=== PATIENT | male | born 1975 | race African-American/Black ===

== ENCOUNTER 2016-10-09 08:32 | Inpatient (IN) | payer MEDICAID ==
[~2016-10-09] VITALS: Ht 172.7 cm; Wt 102.1 kg
[2016-10-09 08:38] VITALS: BP 144/79
--- NOTE | 2016-10-09 08:41 | NUR ---
Patient ambulated to bed 07.
--- NOTE | 2016-10-09 08:42 | NUR ---
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 PT STATES PT THROBBING PAIN TO LEFT LEG 8/10; SWELLING ;NON PITTING EDEMA ,PAIN REDIATES TO LEFT THIGH. PT DENIES N/V/D; SKIN IS PINK/WARM/DRY; AAOX4 ;UNSTEADY GAIT WALK W/ CANE; LUNGS CLEAR BL; HR EVEN AND REGULAR; PT DENIES ANY FEVER, CP, SOB, OR COUGH AT THIS TIME; PATIENT STATES PAIN OF 8/10 AT THIS TIME; PATIENT POSITIONED FOR COMFORT; HOB ELEVATED; BEDRAILS UP X2; BED DOWN. ER MD MADE AWARE OF PT STATUS.
--- NOTE | 2016-10-09 08:58 | NUR ---
Dr. Hurtado evaluating patient at bedside.
--- NOTE | 2016-10-09 09:20 | NUR ---
Patient was moved to bed 08.
--- NOTE | 2016-10-09 09:50 | NUR ---
PT REFUSES FOR IV MANAGEMENT; GAVE INFORMATION PT. DR VILA NOTIFIED.
[2016-10-09] MEDS: NACL 0.9% 1,000 ML IV SCH ×5 (09:53→22:24)
--- NOTE | 2016-10-09 09:53 | NUR ---
US at bedside.
--- NOTE | 2016-10-09 09:53 | NUR ---
rAnold zhu in [facility] - 10/09/16 at [address] AT BEDSIDE.
[2016-10-09] MEDS ORDERED: METHOCARBAMOL500 MG PO (09:59)
[2016-10-09] MEDS ORDERED: XARELTO20 MG PO (09:59)
--- NOTE | 2016-10-09 10:17 | NUR ---
XRAY at bedside.
[2016-10-09] MEDS ORDERED: LORazepam 2 MG/ML VIAL IM ONE (10:30)
[2016-10-09] MEDS ORDERED: LORazepam 2 MG/ML VIAL ONE (10:32)
--- NOTE | 2016-10-09 10:40 | NUR ---
EXPLAINED TO PT FOR IV THERAPY AND GAVE ATIVAN IM ; THEN GAVE IV THERAPY.
[2016-10-09] MEDS ORDERED: hePARIN / DEXT 5% PREMIX 250 ML IV ONE (12:10)
[2016-10-09] MEDS ORDERED: HEPARIN PER PHARMACY MC PRN ×3 (12:10→15:40)
[2016-10-09] MEDS ORDERED: ONDANSETRON 4 MG/2 ML VIAL IVP PRN (12:25)
[2016-10-09] MEDS ORDERED: MORPHINE SULFATE 2 MG/ML SYR IVP PRN (12:25)
--- NOTE | 2016-10-09 13:08 | NUR ---
GAVE REPORT TO YULIA MENDIOLA. YULIA MENDIOLA SAID WILL CALL BACK IN 5 MINS
--- NOTE | 2016-10-09 13:32 | NUR ---
Patient will be admitted to care of DR NG. Admited to [facility]. Will go to [id number]. Belongings list completed. Report to MAURY.
--- NOTE | 2016-10-09 13:45 | NUR ---
RECEIVED REPORT FROM DEAF/HARD OF HEARING SPECIALIST. PT ARRIVED ONTO UNIT VIA GURNEY. PT IS A/O X 4, AMBULATORY WITH CANE. NO S/S OF ACUTE CARDIAC/RESPIRATORY DISTRESS OR DISCOMFORT. RAC IV 20G INTACT AND PATENT. SAFETY MEASURES, FALL RISK PRECAUTION, AND CALL LIGHT WITHIN REACH AND IN PLACE. WILL INITIATE PLAN OF CARE AND CONTINUE TO MONITOR. FAMILY AT BEDSIDE.
[2016-10-09 14:00] VITALS: BP 132/84
[2016-10-09] MEDS ORDERED: METHOCARBAMOL 500 MG TAB PO PRN (14:35)
[2016-10-09] MEDS ORDERED: hePARIN / DEXT 5% PREMIX 250 ML IV SCH ×2 (15:40)
[2016-10-09 16:00] VITALS: BP 120/66
--- NOTE | 2016-10-09 16:30 | NUR ---
PT EATING DINNER GIVEN BY FATHER. PT HAS NO S/S OF ACUTE DISTRESS OR DISCOMFORT. CALL LIGHT WITHIN REACH. WILL CONTINUE TO MONITOR.
--- NOTE | 2016-10-09 19:01 | NUR ---
ENDORSED REPORT TO VERTICAL BORER RN. PT HAS NO S/S OF ACUTE DISTRESS OR DISCOMFORT. PT IN STABLE CONDITION.
--- NOTE | 2016-10-09 19:18 | NUR ---
RECEIVED REPORT FROM MAURY RN, AT BEDSIDE. INITIAL ASSESSMENT AND BODY CHECK DONE. PATIENT AAO X 4, ABLE TO FOLLOW COMMAND AND MAKE KNOWN, HAS LT SIDE WEAKNESS AND AMBULATORY WITH CANE. PATIENT CURRENTLY LYING DOWN ON THE BED AND WATCHING TV. NO S/S OF DISTRESS OR SOB NOTED. SKIN WARM/DRY TO TOUCH WITH NORMAL COLOR AND INTACT. DENIED OF ANY PAIN/DISCOMFORT AT THIS TIME. DISCUSSED PLAN OF CARE, PAIN MANAGEMENT AND MEDICATION REGIMEN WITH PATIENT AND PATIENT VERBALIZED UNDERSTANDING. PLACED PATIENT ON SAFETY/FALL PRECAUTIONS AND WILL CONTINUE TO MONITOR. CALL LIGHT LEFT WITHIN REACH.
--- NOTE | 2016-10-09 19:25 | NUR ---
PATIENT REFUSED BLOOD DRAW FOR PTT LEVEL AND STARTED TO BECOME AGITATE. OFFERED 3 TIMES, EXPLAINED RISKS/BENEFITS AND PATIENT VERBALIZED UNDERSTANDING. PATIENT STATED " YOU COME BACK AGAIN AT 10 PM.
[2016-10-09 20:00] VITALS: BP 109/65
--- NOTE | 2016-10-09 20:00 | NUR ---
UNABLE TO ADMINISTER IVF NS AT 100 ML/HR DUE TO PATIENT ONLY HAVE ONE IV ACCESS WHICH IS USING FOR HEPARIN DRIP. PATIENT ALSO REFUSED TO INSERT ANOTHER IV LINE. WILL ENCOURAGE THE FLUID INTAKE TOLERATE INSTEAD.
--- NOTE | 2016-10-09 20:39 | NUR ---
ROUNDS MADE, SEEN PATIENT RESTED QUIETLY IN BED. NO CHANGE IN CONDITION NOTED. WILL CONTINUE TO MONITOR.
[2016-10-09] MEDS: HYDROcodone/APAP 7.5/325 MG 1 TAB PO PRN (21:40)
--- NOTE | 2016-10-09 22:32 | NUR ---
PATIENT STILL REFUSING BLOOD DRAW FOR PTT LEVEL. EXPLAINED RISKS/BENEFITS. DR. NG MADE AWARE AND STATED TO TRY AGAIN IN THE MORNING.
[2016-10-10] VITALS: BP 121/76
--- NOTE | 2016-10-10 00:52 | NUR ---
PATIENT IS CLINICALLY STABLE AND NO S/S OF DISTRESS NOTED. WILL CONTINUE TO MONITOR.
[2016-10-10 04:00] VITALS: BP 119/64
--- NOTE | 2016-10-10 04:19 | NUR ---
PATIENT RESTED QUIETLY IN BED, EASILY AROUSED WITH STABLE CONDITION. NO ANY COMPLAINT MADE. WILL CONTINUE TO MONITOR.
[2016-10-10] MEDS: LORazepam 1 MG TAB PO PRN (05:24)
--- NOTE | 2016-10-10 05:27 | NUR ---
MEDICATED PATIENT WITH PO ATIVAN FOR ANXIETY BEFORE DRAWING THE AM LAB PER FAMILY REQUESTED. FAMILY WILL COME TO HELP TO COMFORT THE PATIENT AT AROUND 0600 AM.
--- NOTE | 2016-10-10 06:10 | NUR ---
FAMILY MEMBERS ARE HERE AT THE BEDSIDE. CALLED RAY TO COME TO DRAW THE BLOOD. PATIENT COOPERATED AND TOLERATED WELL WITH BEHAVIOR UNDER CONTROL.
--- NOTE | 2016-10-10 07:30 | NUR ---
ENDORSED PLAN OF CARE TO YULIA AMBROSIO, AT BEDSIDE. PATIENT REMAINED IN STABLE CONDITION AND NO APPARENT DISTRESS NOTED. FAMILY REMAINS AT BEDSIDE.
--- NOTE | 2016-10-10 07:35 | NUR ---
RECEIVED PT FROM DK BENDER. PT IS AWAKE, ALERT, AND ORIENTED AND CURRENTLY RESTING IN BED. PT'S AT BEDSIDE. NO S/S OF RESPIRATORY DISTRESS NOTED. LUNG SOUND CLEAR. ABDOMEN SOFT WITH ACTIVE BOWEL SOUNDS. PT HAS LEFT SIDE WEAKNESS. PT ON HEPARIN DRIP TO LEFT AC AT THIS TIME, SITE INTACT AND PATENT.SKIN INTACT, WARM AND DRY. DENIES PAIN AT THIS TIME. POC DISCUSSED WITH PT, PT VERBALIZED UNDERSTANDING. CALL LIGHT IN REACH, HOB ELEVATED 30 DEGREES WITH LOW BED POSITION. SIDE RAILS UP X2. WILL CONTINUE TO MONITOR.
--- NOTE | 2016-10-10 07:45 | NUR ---
DR. MACARIO WITH HIS GROUP IN TO SEE PT.
[2016-10-10 08:00] VITALS: BP 117/72
[2016-10-10] MEDS ORDERED: RIVAROXABAN 10 MG TAB PO SCH ×4 (09:00→22:00)
--- NOTE | 2016-10-10 09:00 | NUR ---
DUE MEDS GIVEN. PT TOLERATED WELL.
--- NOTE | 2016-10-10 09:15 | NUR ---
PATIENT HAS BEEN SCREENED AND CATEGORIZED MODERATE NUTRITION RISK. PATIENT WILL BE SEEN WITHIN 3-5 DAYS OF ADMISSION. 10/12/16-10/14/[address]
[2016-10-10] MEDS: NACL 0.9% 1,000 ML IV SCH ×2 (11:00→20:48)
--- NOTE | 2016-10-10 11:00 | NUR ---
DISCONTINUED HEPARIN DRIP PER ORDER. PT ON 0.9 NS 100 ML/HR. PT DENIES ANY PAIN OR DISCOMFORT AT THIS TIME. CALL LIGHT IN REACH, WILL CONTINUE TO MONITOR.
[2016-10-10 12:00] VITALS: BP 130/71
--- NOTE | 2016-10-10 12:15 | NUR ---
LUNCH TRAY SERVED TO PT. PT ATE 50% OF THE FOOD.
--- NOTE | 2016-10-10 13:45 | NUR ---
SPOKE WITH DR. HERNANDEZ, HE WILL CHANGE THE TIME TO GIVE XARELTO 10MG AT 2200 . XARELTO 10 MG NOT GIVEN AT THIS TIME.
[2016-10-10] MEDS: HYDROcodone/APAP 7.5/325 MG 1 TAB PO PRN (15:59)
[2016-10-10 16:00] VITALS: BP 132/70
--- NOTE | 2016-10-10 17:37 | NUR ---
PT RESTING IN BED, DENIES PAIN OR DISCOMFORT AT THIS TIME. NO S/S OF RESPIRATORY DISTRESS NOTED. WILL CONTINUE TO MONITOR.
--- NOTE | 2016-10-10 18:49 | NUR ---
PT RESTING IN BED, NO S/S OF RESPIRATORY DISTRESS NOTED. SAFETY MAINTAINED. CALL LIGHT IN REACH. NO DISCOMFORT OR PAIN COMPLAINED. WILL CONTINUE TO MONITOR.
--- NOTE | 2016-10-10 19:14 | NUR ---
RECEIVED PT FROM HEBERT BENDER FOR PT CONTINUITY OF CARE AT BEDSIDE. PT NOTED STABLE, NO S/S OF ACUTE DISTRESS NOTED.
--- NOTE | 2016-10-10 19:30 | NUR ---
SHIFT ASSESSMENT DONE. PT IS A/O X4, NO S/S OF ACUTE DISTRESS. ABLE TO VERBALIZE NEEDS AND FOLLOW COMMANDS. DISCUSSED PLAN OF CARE WITH PT, VERBALIZED UNDERSTANDING. VITAL SIGNS ARE STABLE, PT ON ROOM AIR WITH OXYGEN SATURATION AT 98%. PT DENIES PAIN. ALSO DENIES CHEST PAIN, SOB, AND OR N/V/D. LUNG SOUNDS ARE CLEAR, BOWEL SOUNDS ARE ACTIVE. SKIN INTACT. IV ACCESS TO RT AC #20G, PATENT AND INTACT. NOTED PT LEFT LEG/EXTREMITY SWOLLEN, NON PITTING EDEMA AND WARM TO TOUCH, PT CURRENTLY ON BLOOD THINNER. PT HAS LEFT SIDE UPPER AND LOWER WEAKNESS FROM HX CVA. USES CANE TO AMBULATE. GOOD STRENGTH TO LEFT SIDE. SAFETY PRECAUTIONS ARE IMPLEMENTED. CALL LIGHT WITHIN EASY REACH. WILL CONTINUE TO MONITOR PT.
[2016-10-10 20:00] VITALS: BP 106/64
[2016-10-10] MEDS: CALCIUM CARBONATE 500 MG TAB PO SCH (20:47)
--- NOTE | 2016-10-10 20:47 | NUR ---
PROVIDED PT WITH PM SCHEDULED MEDICATIONS. NO S/S OF ACUTE DISTRESS, PT REMAINS STABLE. CALL LIGHT WITHIN EASY REACH.
[2016-10-11] VITALS: BP 126/82
--- NOTE | 2016-10-11 00:15 | NUR ---
PT VITAL SIGNS ARE NOTED STABLE AT THIS TIME. NO S/S OF RESPIRATORY DISTRESS, 98% O2 SAT. PT DENIES PAIN. CALL LIGHT WITHIN REACH.
--- NOTE | 2016-10-11 02:12 | NUR ---
PT IS AWAKE WATCHING TV, NO DISTRESS. CALL LIGHT WITHIN REACH.
--- NOTE | 2016-10-11 03:47 | NUR ---
VITALS SIGNS REMAIN STABLE, NO S/S OF ACUTE DISTRESS. CALL LIGHT WITHIN REACH.
[2016-10-11 04:00] VITALS: BP 136/81
[2016-10-11] MEDS: NACL 0.9% 1,000 ML IV SCH ×2 (04:24→10:53)
[2016-10-11] MEDS: LORazepam 1 MG TAB PO PRN (05:31)
--- NOTE | 2016-10-11 06:31 | NUR ---
PT NOTED AWAKE WATCHING TV, FAMILY AT BEDSIDE, NO DISTRESS NOTED. CALL LIGHT WITHIN REACH.
--- NOTE | 2016-10-11 07:27 | NUR ---
ENDORSED PT TO HEBERT BENDER FOR CONTINUITY OF CARE AT BEDSIDE. NO ACUTE S/S OF DISTRESS NOTED.
--- NOTE | 2016-10-11 07:40 | NUR ---
RECEIVED PT FROM PIANO MAKER RN. PT IS AWAKE, ALERT, AND ORIENTED . NO S/S OF RESPIRATORY DISTRESS NOTED. LUNG SOUND CLEAR. ABDOMEN SOFT WITH ACTIVE BOWEL SOUNDS. PT HAS LEFT SIDE WEAKNESS. PT ON 0.9 NS 100 ML/HR TO RIGHT AC AT THIS TIME, SITE INTACT AND PATENT.SKIN INTACT, WARM AND DRY. DENIES PAIN AT THIS TIME. POC DISCUSSED WITH PT, PT VERBALIZED UNDERSTANDING. NO C/O PAIN AT THIS TIME. CALL LIGHT IN REACH, HOB ELEVATED 30 DEGREES WITH LOW BED POSITION. SIDE RAILS UP X2. WILL CONTINUE TO MONITOR.
[2016-10-11 08:00] VITALS: BP 116/78
[2016-10-11] MEDS: CALCIUM CARBONATE 500 MG TAB PO SCH (08:45)
[2016-10-11] MEDS ORDERED: RIVAROXABAN 15 MG TAB PO SCH (09:00)
--- NOTE | 2016-10-11 09:10 | NUR ---
PT RESTING IN BED. NO S/S OF RESPIRATORY DISTRESS NOTED. CALL LIGHT IN REACH. WILL CONTINUE TO MONITOR.
[2016-10-11 12:00] VITALS: BP 120/80
--- NOTE | 2016-10-11 12:00 | NUR ---
SERVED LUNCH TRAY TO PT.
[2016-10-11] MEDS ORDERED: APAP/HYDROCODON1 T30 PO (14:04)
[2016-10-11] MEDS ORDERED: XARELTO15 MG PO (14:04)
[2016-10-11] MEDS ORDERED: COLACE100 M1 PO (14:05)
--- NOTE | 2016-10-11 14:20 | NUR ---
SS NOTE: PER [place] FROM [facility], [facility] DOES NOT COVER HOME HEALTH SERVICES. PT'S INFORMATION AND PRESCRIPTION FOR [place] SENT TO [facility], RECEIVED FAX CONFIRMATION I SPOKE WITH PT BEDSIDE AND INFORMED HIM OF THE ABOVE INFORMATION. I PROVIDED PT WITH THE INFORMATION FOR [facility] AND ADVISED PT TO CALL FOR AN APPT. I ALSO PROVIDED PT WITH INFORMATION TO SIGN UP FOR [facility] OR [facility] SO THAT PT CAN OBTAIN ADDITIONAL SERVICES FOR THE FUTURE, PT VERBALIZED UNDERSTANDING.
--- NOTE | 2016-10-11 14:20 | NUR ---
NOTIFIED PT'S SISTER, PT WILL BE DISCHARGED. PT RESTING IN BED AT THIS TIME.
--- NOTE | 2016-10-11 15:15 | NUR ---
PT AWAKE, ALERT, AND ORIENTED. NO S/S OF RESPIRATORY DISTRESS NOTED. VITALS STABLE . DISCHARGE INSTRUCTION GIVEN. PT AND PT'S SISTER VERBALIZED UNDERSTANDING. PT'S SISTER SIGNED ALL THE DISCHARGE PAPER. ALL THE PERSONAL BELONGINGS WITH PT. PT BEEN DISCHARGED, ACCOMPANIED WITH HIS SISTER.
--- NOTE | 2016-10-12 09:24 | NUR ---
SS NOTE: I SPOKE WITH LANDON FROM [facility] TO CONFIRM THAT THEY RECEIVED PT'S INFORMATION. SHE STATED THAT THEY DID RECEIVE THE INFORMATION AND THAT SHE WILL CALL PT TO FOLLOW UP WITH HIM TO SCHEDULE AN APPT.
== END 2016-10-11 15:15 | disposition home or self-care (01) | DRG 197 ==
LOC: MED 08:32 → MTU 12:32
PROVIDERS: ADMIT Family Medicine; ATTEND Family Medicine
DX: I82.4Y2 Acute embolism and thrombosis of unspecified deep veins of left proximal lower extremity (principal); E44.0 Moderate protein-calorie malnutrition; I11.9 Hypertensive heart disease without heart failure; I69.954 Hemiplegia and hemiparesis following unspecified cerebrovascular disease affecting left non-dominant side; E83.51 Hypocalcemia; E66.9 Obesity, unspecified; D64.9 Anemia, unspecified; E11.9 Type 2 diabetes mellitus without complications; Z53.29 Procedure and treatment not carried out because of patient's decision for other reasons; M19.90 Unspecified osteoarthritis, unspecified site; Z86.711 Personal history of pulmonary embolism; Z79.01 Long term (current) use of anticoagulants; Z71.3 Dietary counseling and surveillance; Z79.899 Other long term (current) drug therapy; Z72.89 Other problems related to lifestyle; Z68.34 Body mass index [BMI] 34.0-34.9, adult

== ENCOUNTER 2016-12-08 11:57 | Emergency (ER) | payer MEDICAID, OTHER ==
[~2016-12-08] VITALS: Ht 175.3 cm; Wt 101.2 kg
[~2016-12-08 11:57] MED LIST: ACET-9529 PO; DOCU-67 PO; METH500T18 PO; RIVA15TA1 PO
[2016-12-08 12:17] VITALS: BP 136/80
[2016-12-08] MEDS: oxyCODONE/APAP 5/325 MG 1 TAB TAB PO ONE (14:59)
[2016-12-08 16:50] VITALS: BP 141/88
== END 2016-12-08 16:50 | disposition home or self-care (01) ==
LOC: MED 11:57
DX: M67.432 Ganglion, left wrist (principal); Z86.73 Personal history of transient ischemic attack (TIA), and cerebral infarction without residual deficits
CPT/HCPCS: 93971; 99284; Q0092

== ENCOUNTER 2017-02-05 17:16 | Emergency (ER) | payer OTHER ==
[~2017-02-05] VITALS: Ht 175.3 cm; Wt 96.2 kg
[2017-02-05 17:53] VITALS: BP 136/67
--- NOTE | 2017-02-05 18:06 | NUR ---
NOTIFIED OF PT ON XARELTO, HX CVA---PT ADMITS RECEIVING FULL WORK UP AT [facility] [place] LAST NIGHT AND DC THIS AM. C/O RIGHT THIGH AND RIGHT RIB PAIN---NO SWELLING NOTED V/S/S
--- NOTE | 2017-02-05 19:22 | NUR ---
Patient ambulated to bed 7. RN evaluating patient at bedside.
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
[2017-02-05] MEDS ORDERED: DIAZEPAM 5 MG TAB PO ONE (19:45)
[2017-02-05] MEDS ORDERED: KETOROLAC 30 MG/ML VIAL IM ONE (19:45)
[2017-02-05] MEDS ORDERED: HYDROcodone/APAP 5/325 MG 1 TAB TAB PO ONE (19:55)
[2017-02-05 20:39] VITALS: BP 128/62
--- NOTE | 2017-02-05 20:40 | NUR ---
Patient discharged with v/s stable. Written and verbal after care instructions given and explained. Patient alert, oriented and verbalized understanding of instructions. Ambulatory with steady gait. All questions addressed prior to discharge. ID band removed. Patient advised to follow up with PMD. Rx of NORCO AND FLEXERIL given. Patient educated on indication of medication including possible reaction and side effects. Opportunity to ask questions provided and answered.
== END 2017-02-05 20:39 | disposition home or self-care (01) ==
LOC: MED 17:16
DX: R07.89 Other chest pain (principal); M79.1 Myalgia; Z86.73 Personal history of transient ischemic attack (TIA), and cerebral infarction without residual deficits
CPT/HCPCS: 71010; 99283; Q0092

== ENCOUNTER 2017-02-06 08:37 | Emergency (ER) | payer OTHER ==
[~2017-02-06] VITALS: Ht 172.7 cm; Wt 96.3 kg
[2017-02-06 08:38] VITALS: BP 146/81
--- NOTE | 2017-02-06 08:46 | NUR ---
PT AMBULATED TO BED 5.
--- NOTE | 2017-02-06 08:47 | NUR ---
PT TAKEN TO XRAY VIA W/C ACCOMPANIED BY [employer].
--- NOTE | 2017-02-06 08:51 | NUR ---
PT RETURNED FROM XRAY VIA W/C ACCOMPANIED BY [employer].
--- NOTE | 2017-02-06 09:00 | NUR ---
PT VOICING CONCERN OVER PIV---LAB AT BEDSIDE COLLECTING BLOOD PT REQUIRED ASSURANCE LAB WILL USE A BUTTERFLY----PT REQUESTED 10MINS TO ALLOW HIMSELF TO CALM DOWN AND ACCEPT BUTTERFLY STICK.
--- NOTE | 2017-02-06 09:05 | NUR ---
PATIENT PRESENTS TO ED WITH ANTERIOR CHEST WALL PAIN . PT STATES SHARP IN NATURE NON RADIATING 9/10 ONGOING X 2 DAYS] . DENIES N/V/D; SKIN IS PINK/WARM/DRY; AAOX4 WITH EVEN AND STEADY GAIT; LUNGS CLEAR BL; HR EVEN AND REGULAR; PT DENIES ANY FEVER, CP, SOB, OR COUGH AT THIS TIME; PATIENT STATES PAIN OF 9/10 AT THIS TIME; VSS; PATIENT POSITIONED FOR COMFORT; HOB ELEVATED; BEDRAILS UP X2; BED DOWN. ER MD MADE AWARE OF PT STATUS.
[2017-02-06] MEDS ORDERED: KETOROLAC 60 MG/2 ML VIAL IM ONE (09:40)
[2017-02-06] MEDS ORDERED: NACL 0.9% 1,000 ML IV ONE (10:05)
[2017-02-06] MEDS ORDERED: KETOROLAC 30 MG/ML VIAL IVP ONE (10:05)
--- NOTE | 2017-02-06 10:30 | NUR ---
AFTER LONG NEGOTIATIONS PT ALLOWED IV TO LUE---
[2017-02-06 11:06] LABS: BASOPHILS # (AUTO) 0.2 K/uL (0.00-0.22); BASOPHILS % (AUTO) 3.2 % (0.0-2.0); EOSINOPHILS # (AUTO) 0.2 K/uL (0-0.4); EOSINOPHILS % (AUTO) 3.1 % (0.0-4.0); HEMATOCRIT 43.5 % (36-52); HEMOGLOBIN 13.9 g/dL (12.0-18.0); LYMPHOCYTES # (AUTO) 1.9 K/uL (2.0-11.5); LYMPHOCYTES % (AUTO) 26.6 % (20.5-51.1); MEAN CORPUSCULAR HEMOGLOBIN 27 pg (27-31); MEAN CORPUSCULAR HGB CONC 32 g/dL (33-37); MEAN CORPUSCULAR VOLUME 84 fL (80-94); MONOCYTES # (AUTO) 0.9 K/uL (0.8-1.0); MONOCYTES % (AUTO) 12.1 % (1.7-9.3); NEUTROPHILS # (AUTO) 3.9 K/uL (1.8-7.7); PLATELET COUNT (AUTO) 184 K/uL (140-450); RED BLOOD CELL COUNT(AUTO) 5.18 MIL/uL (4.20-6.10); RED CELL DISTRIBUTION WIDTH 15.6 % (11.6-13.7)
[2017-02-06 11:07] LABS: WHITE BLOOD COUNT (AUTO) 7.1 K/uL (4.8-10.8)
[2017-02-06 11:16] LABS: ANION GAP 11.6 (8-16); CALCIUM 8.6 mg/dL (8.5-10.1); CARBON DIOXIDE 29.2 mmol/L (21-32); CREATININE 1.6 mg/dL (0.7-1.3); POTASSIUM 3.8 mmol/L (3.5-5.1)
[2017-02-06 11:18] LABS: INR 1.1 (0.8-1.2); PARTIAL THROMBOPLASTIN TIME 24.6 secs (22-35.6); PROTHROMBIN TIME 10.7 secs (10.8-13.4)
[2017-02-06 11:22] LABS: ALBUMIN 3.7 g/dL (3.4-5.0); TOTAL BILIRUBIN 0.7 mg/dL (0.0-1.0); TOTAL PROTEIN, SERUM 7.6 g/dL (6.4-8.2)
--- NOTE | 2017-02-06 11:41 | NUR ---
PT RESTING WITH OU CLOSED, NO S/S RESP DISTRESS---NO GRIMACE NO MOAN---WILL CONTINUE TO OBSERVE FOR PAIN CONTROL
--- NOTE | 2017-02-06 13:23 | NUR ---
Patient discharged with v/s stable. Written and verbal after care instructions given and explained. Patient alert, oriented and verbalized understanding of instructions. Ambulatory with steady gait. All questions addressed prior to discharge. ID band removed. Patient advised to follow up with PMD. Rx of MOTRIN given. Patient educated on indication of medication including possible reaction and side effects. Opportunity to ask questions provided and answered. ENCOURAGED TO APPLY HEAT PADS TO CONTUSION SITE FOR COMFORT---
[2017-02-06 13:25] VITALS: BP 126/71
--- NOTE | 2017-02-06 13:31 | NUR ---
UPON DC PT INFORMED ME HE RECENTLY DOES NOT HAVE A PLACE TO STAY OR HAVE ANY MONEY. I OFFERED A PACKET FOR RESOURCES. PT STATED HE RATHER JUS TALK TO A GARNETT ROOM WORKER. AMBULATED TO WAITING AREA TO WAIT FOR GARNETT ROOM WORKER
== END 2017-02-06 13:23 | disposition home or self-care (01) ==
LOC: MED 08:37
DX: S20.20XA Contusion of thorax, unspecified, initial encounter (principal); V49.9XXA Car occupant (driver) (passenger) injured in unspecified traffic accident, initial encounter; Y93.89 Activity, other specified; Y92.488 Other paved roadways as the place of occurrence of the external cause; Y99.8 Other external cause status
CPT/HCPCS: 36415; 71010; 80053; 84484; 85025; 85610; 85730; 93005; 96361; 96374; 99285; J1885; J7030